=== PATIENT | male | born 1990 | race African-American/Black ===

== ENCOUNTER 2024-11-01 23:33 | Emergency (ER) | payer SELFPAY ==
[~2024-11-01] VITALS: Ht 185.4 cm; Wt 129.0 kg
[~2024-11-01 23:33] MED LIST: UNKNOWN MEDS
[2024-11-01 23:40] VITALS: TEMP 98.2; O2SAT 98
[2024-11-02] MEDS ORDERED: CIPR250T4 MT (03:19)
[2024-11-02 04:04] VITALS: BP 140/88; PULSE 67; RESP 16; O2SAT 96
== END 2024-11-02 04:06 | disposition home or self-care (01) ==
LOC: ER 23:33
DX: B34.9 Viral infection, unspecified (principal)
CPT/HCPCS: 71045; 99283